=== PATIENT | female | born 1965 | race Hispanic/Latino ===

== ENCOUNTER 2022-04-26 19:31 | Emergency (ER) | payer BC ==
[~2022-04-26] VITALS: Ht 157.5 cm; Wt 72.1 kg
[2022-04-26] MEDS ORDERED: KETOROLAC TROMETHAMINE 30 MG/ML VIAL IV STA (20:25)
[2022-04-26] MEDS ORDERED: KETOROLAC TROMETHAMINE 30 MG/ML VIAL ONE (20:43)
[2022-04-26] MEDS ORDERED: SODIUM CHLORIDE 0.9% 1000ML 1,000 ML ONE (20:43)
[2022-04-26] MEDS ORDERED: FLOMAX0.4 MG PO (22:41)
[2022-04-26] MEDS ORDERED: KETOROLAC TROME10 MG PO (22:41)
== END 2022-04-26 23:39 | disposition home or self-care (01) ==
LOC: FSED 20:25
DX: R10.32 Left lower quadrant pain (principal); N20.2 Calculus of kidney with calculus of ureter; K80.20 Calculus of gallbladder without cholecystitis without obstruction; E78.5 Hyperlipidemia, unspecified
CPT/HCPCS: 74176; 80048; 80076; 85025; 99284; J1885; J7030